=== PATIENT | male | born 1945 | race Caucasian/White ===

== ENCOUNTER → 2024-01-31 | Outpatient (CLI) | payer MEDICARE | LOC: COL.RAD 11:02 | DX: N13.30 Unspecified hydronephrosis (principal); C61 Malignant neoplasm of prostate ==

== ENCOUNTER → 2024-05-24 | Outpatient (CLI) | payer MEDICARE ==
[~2024-05-24] MED LIST: Iohexol 300 - 100 ML VIAL IV ONE; NS 100 ML IV SCH
== END ==
LOC: COL.RAD 12:15
DX: C61 Malignant neoplasm of prostate (principal); N13.30 Unspecified hydronephrosis
CPT/HCPCS: Q9967